=== PATIENT | female | born 1995 | race American Indian/Alaskan Native ===

== ENCOUNTER 2017-08-20 13:22 | Inpatient (IN) | payer OTHER ==
[~2017-08-20] VITALS: Ht 152.4 cm; Wt 73.5 kg
[2017-08-20] MEDS ORDERED: PRENATAL TABLE1 EAC4 PO (13:41)
== END 2017-08-22 11:44 | disposition home or self-care (01) | DRG 775 ==
LOC: OB/GYN 13:22 → LDR 13:22 → OB/GYN 17:08
PROC: 0KQM0ZZ Repair Perineum Muscle, Open Approach (ICD-10-PCS; principal; 2017-08-20)
PROC: 10E0XZZ Delivery of Products of Conception, External Approach (ICD-10-PCS; 2017-08-20)
PROC: 4A1HXCZ Monitoring of Products of Conception, Cardiac Rate, External Approach (ICD-10-PCS; 2017-08-20)
PROC: 4A033R1 Measurement of Arterial Saturation, Peripheral, Percutaneous Approach (ICD-10-PCS; 2017-08-20)
DX: O70.1 Second degree perineal laceration during delivery (principal); Z37.0 Single live birth; Z3A.38 38 weeks gestation of pregnancy